=== PATIENT | female | born 1960 | race Caucasian/White ===

== ENCOUNTER → 2017-10-12 | Outpatient (CLI) | payer SELFPAY ==
[2017-10-12 07:20] LABS: HCT 41.6 % (34.0-46.0); HGB 13.8 gm/dL (11.4-16.0); MCH 28.4 pg (25.0-35.0); MCV 85.8 fL (80.0-100.0); Mean Platelet Volume 7.5; Platelet Count 315 k/uL (150-450); RBC 4.85 m/uL (3.80-5.40); RDW 14.1 % (11.5-15.5); WBC 8.1 k/uL (3.8-10.6)
[2017-10-12 09:19] LABS: C Reactive Protein 11.4 mg/L (<10.0)
[2017-10-12 11:20] LABS: Rheumatoid Factor 6 IU/mL (0-15); Streptolysin O Ab(ASO) 39 IU/mL (0-200)
[2017-10-12 13:55] LABS: Erythrocyte Sedimentation Rate 36 mm/hr (0-20)
[2017-10-13 10:41] LABS: HLA B27 NEGATIVE
== END | disposition home or self-care (01) ==
LOC: LABWHC1 06:37
PROVIDERS: ATTEND Orthopaedic Surgery
DX: M19.072 Primary osteoarthritis, left ankle and foot (principal); M21.42 Flat foot [pes planus] (acquired), left foot; M06.9 Rheumatoid arthritis, unspecified
CPT/HCPCS: 36415; 84443; 85027; 85652; 86038; 86060; 86140; 86431; 86618; 86812

== ENCOUNTER → 2018-10-07 | Outpatient (CLI) | payer SELFPAY ==
--- NOTE | 2018-10-07 11:57 | XR ---
EXAMINATION TYPE: XR Hip Complete LT DATE OF EXAM: 10/07/2018 CLINICAL HISTORY: pain TECHNIQUE: AP and frogleg views of the left hip are obtained. COMPARISON: None. FINDINGS: There is no acute fracture/dislocation evident. The joint space appears within normal li mits. The overlying soft tissue appears unremarkable. IMPRESSION: 1. There is no acute fracture or dislocation. ICD 10 NO FRACTURE, INITIAL EVALUATION
== END ==
LOC: RADXRMAIN 11:14
PROVIDERS: ATTEND Midwife
DX: M25.552 Pain in left hip (principal)
CPT/HCPCS: 73502

== ENCOUNTER → 2019-01-14 | Outpatient (CLI) | payer SELFPAY ==
--- NOTE | 2019-01-14 16:26 | US ---
EXAMINATION TYPE: US abdomen complete DATE OF EXAM: 01/14/2019 COMPARISON: CT 2010 CLINICAL HISTORY: LLQ Abd Pain R10.32. Left lower quadrant abdominal pain x 2 weeks. Hx kidney stones . EXAM MEASUREMENTS: Liver Length: 16.1 cm Gallbladder Wall: 0.26 cm CBD: 0.48 cm Spleen: 10.1 cm Right Kidney: 11.5 x 6.1 x 6.4 cm Left Kidney: 10.9 x 6.1 x 6.7 cm Limited due to body habitus and gas Pancreas: appears wnl Liver: appears wnl Gallbladder: Echoes seen within the GB. Artifact vs. minimal sludge. Evidence for sonographic Ritter's sign: No CBD: wnl Spleen: wnl Right Kidney: Prominent renal pelvis. Minimal hydronephrosis? Left Kidney: Within normal limits Upper IVC: wnl Abd Aorta: wnl IMPRESSION: 1. There may be some minimal right hydronephrosis. 2. Small amount of Cholelithiasis and/or sludge.
== END | disposition home or self-care (01) ==
LOC: RADUSWWP 10:16
PROVIDERS: ATTEND Midwife
DX: R10.32 Left lower quadrant pain (principal)
CPT/HCPCS: 76700

== ENCOUNTER 2019-02-22 18:12 | Emergency (ER) | payer OTHER ==
[2019-02-22 18:18] VITALS: TEMP 98.1
[2019-02-22] MEDS ORDERED: SODIUM CHLORIDE 0.9% 1,000 ML IV STA (18:19)
[2019-02-22] MEDS ORDERED: ONDANSETRON 4 MG/2 ML VIAL IVP STA (18:19)
[2019-02-22] MEDS ORDERED: MORPHINE SULFATE 2 MG/ML SYRINGE IVP STA (18:19)
[2019-02-22 18:38] LABS: Basophils # (A) 0.1 k/uL (0-0.2); Basophils % (A) 1 %; Eosinophils # (A) 0.2 k/uL (0-0.7); Eosinophils % (A) 2 %; HCT 42.2 % (34.0-46.0); HGB 13.5 gm/dL (11.4-16.0); Lymphocytes % (A) 19 %; MCH 27.9 pg (25.0-35.0); MCV 87.4 fL (80.0-100.0); Mean Platelet Volume 7.7; Monocytes # (A) 0.5 k/uL (0-1.0); Monocytes % (A) 4 %; Neutrophils # (A) 7.5 k/uL (1.3-7.7); Neutrophils % (A) 72 %; Platelet Count 304 k/uL (150-450); RBC 4.83 m/uL (3.80-5.40); RDW 15.8 % (11.5-15.5); WBC 10.4 k/uL (3.8-10.6)
[2019-02-22] MEDS ORDERED: KETOROLAC 30 MG/ML 1 ML VIAL IVP STA (18:45)
[2019-02-22 18:47] LABS: ALT 23 U/L (9-52); AST 19 U/L (14-36); African American GFR (CKD) >90 (>60 ml/min/1.73 sqM); Albumin 3.8 g/dL (3.5-5.0); Alkaline Phosphatase 71 U/L (38-126); Amylase 55 U/L (30-110); Anion Gap 6 mmol/L; Blood Urea Nitrogen 14 mg/dL (7-17); Calcium 8.7 mg/dL (8.4-10.2); Carbon Dioxide 27 mmol/L (22-30); Chloride 109 mmol/L (98-107); Glucose 116 mg/dL (74-99); Lipase 117 U/L (23-300); Sodium 142 mmol/L (137-145); Total Bilirubin 0.3 mg/dL (0.2-1.3); Total Protein 6.8 g/dL (6.3-8.2)
--- NOTE | 2019-02-22 18:52 | ED ---
Abdominal Pain HPI - General Chief Complaint: Abdominal Pain Stated Complaint: LEFT FLANK PAIN Time Seen by Provider: 02/22/19 18:19 Source: patient Mode of arrival: wheelchair Limitations: no limitations - History of Present Illness Initial Comments: 58-year-old female presenting for left lower quadrant and left flank pain. Patient has history of kidney stones. Patient states this morning she felt nauseated and had left side pain. She states she ate something and vomited it out. She states it was food. She denies any hematemesis. Patient denies fever chills night sweats diarrhea she denies dysuria or urgency frequency or hematuria. Patient states the pain has been persistent coming and going in intensity. She denies any specific radiation of the pain she is denies any specific alleviating or aggravating factors. Patient denies taking medications prior to arrival to emergency department. Patient denies any known drug ALLERGIES. She denies any recent surgeries. Remaining review of systems negative, patient denies any recent shortness of breath, chest pain, numbness or tingling, constipation or diarrhea, headaches or visual changes, or any other complaints. Multiple normal BM today. - Related Data Home Medications Medication Instructions Recorded Confirmed Ergocalciferol [Vitamin D2 50,000 unit PO MO 04/16/15 04/16/15 (DRISDOL)] Ibuprofen [Motrin] 200 - 400 mg PO Q6HR PRN 04/16/15 04/16/15 Ibuprofen/Diphenhydramine HCl 1 tab PO HS PRN 04/16/15 04/16/15 [Advil Pm Liqui-Gels] buPROPion HCL [Wellbutrin SR] 150 mg PO BID 04/16/15 04/16/15 Previous Rx's Medication Instructions Recorded Cephalexin [Keflex] 500 mg PO Q8HR 7 Days #21 cap 02/22/19 Ketorolac [Toradol] 10 mg PO Q6HR PRN 5 Days #20 tab 02/22/19 Ondansetron Odt [Zofran Odt] 4 mg PO Q8HR PRN 5 Days #15 tab 02/22/19 Allergies Allergy/AdvReac Type Severity Reaction Status Date / Time No Known Allergies Allergy Verified 02/22/19 18:17 Review of Systems ROS Statement: Those systems with pertinent positive or pertinent negative responses have been documented in the HPI. ROS Other: All systems not noted in ROS Statement are negative. Past Medical History Past Medical History: Diabetes Mellitus Additional Past Medical History / Comment(s): DIET CONTROLLED, DIABETIC History of Any Multi-Drug Resistant Organisms: None Reported Past Surgical History: Orthopedic Surgery Additional Past Surgical History / Comment(s): EX. LAPAROSCOPY. Past Anesthesia/Blood Transfusion Reactions: No Reported Reaction Past Psychological History: Depression Smoking Status: Never smoker Past Alcohol Use History: Rare Past Drug Use History: None Reported General Exam - General Exam Comments Initial Comments: General: The patient is awake and alert, in no distress, and does not appear acutely ill. Eye: +3 mm pupils are equal, round and reactive to light, extra-ocular movements are intact. No nystagmus. There is normal conjunctiva bilaterally. No signs of icterus. Ears, nose, mouth and throat: There are moist mucous membranes and no oral lesions. Neck: The neck is supple, there is no tenderness or JVD. Cardiovascular: There is a regular rate and rhythm. No murmur, rub or gallop is appreciated. Respiratory: Lungs are clear to auscultation, respirations are non-labored, breath sounds are equal. No wheezes, stridor, rales, or rhonchi. Gastrointestinal: Soft, non-distended, tender abdomen to palpation in the LLQ without masses or organomegaly noted. There is no rebound or guarding present. No CVA tenderness. Bowel sounds are unremarkable. Musculoskeletal: Normal ROM, no tenderness. Strength 5/5. Sensation intact. Radial and DP pulses equal bilaterally 2+. Neurological: A&O x 3. CN II-XII intact, There are no obvious motor or sensory deficits. Coordination appears grossly intact. Speech is normal. Skin: Skin is warm and dry and no rashes or lesions are noted. Psychiatric: Cooperative, appropriate mood & affect, normal judgment. Limitations: no limitations Course Vital Signs 02/22/19 02/22/19 02/22/19 18:15 20:40 21:35 Temperature 98.1 F Pulse Rate 73 74 71 Respiratory 18 16 18 Rate Blood Pressure 152/80 129/67 131/91 O2 Sat by Pulse 99 100 97 Oximetry - Reevaluation(s) Reevaluation #1: Upon reevaluation patient is resting comfortably in the bed. She states that the medications have alleviated the pain. Awaiting urinalysis results. 02/22/19 20:27 Medical Decision Making - Medical Decision Making 58-year-old female history of kidney stones presents with left flank pain. Relief with Toradol. Urinalysis revealed red blood cells. Moderate leukocyte e sterase, 7 WBC. She has no leukocytosis. Afebrile. In no discomfort after Toradol. CT revealed a large left-sided stone 7 mm. They appear to be out of proportion. Cleo-nephrotic edema. However there is no overt signs of infection. There is concern for possible urine leakage. I discussed the findings with Dr. Montoya attenidng provider who contacted Dr. Cordoba taxation agent Urologist. He recommended discharge with outpatient f/u. I discussed the trace studies as well as CT imaging study findings with patient. She is agreeable and states she feels comfortable with discharge home with outpatient follow-up. Patient is prescribed, Toradol as well as Zofran for symptomatic treatment. As well as a short course of Keflex. Patient discharged appearing well. Return parameters were discussed at length with patient prior to discharge. - Lab Data Result diagrams: 02/22/19 18:31 02/22/19 18:31 Lab Results 02/22/19 02/22/19 02/22/19 Range/Units 18:31 18:31 20:00 WBC 10.4 (3.8-10.6) k/uL RBC 4.83 (3.80-5.40) m/uL Hgb 13.5 (11.4-16.0) gm/dL Hct 42.2 (34.0-46.0) % MCV 87.4 (80.0-100.0) fL MCH 27.9 (25.0-35.0) pg MCHC 32.0 (31.0-37.0) g/dL RDW 15.8 H (11.5-15.5) % Plt Count 304 (150-450) k/uL Neutrophils % 72 % Lymphocytes % 19 % Monocytes % 4 % Eosinophils % 2 % Basophils % 1 % Neutrophils # 7.5 (1.3-7.7) k/uL Lymphocytes # 2.0 (1.0-4.8) k/uL Monocytes # 0.5 (0-1.0) k/uL Eosinophils # 0.2 (0-0.7) k/uL Basophils # 0.1 (0-0.2) k/uL Sodium 142 (137-145) mmol/L Potassium 4.0 (3.5-5.1) mmol/L Chloride 109 H (98-107) mmol/L Carbon Dioxide 27 (22-30) mmol/L Anion Gap 6 mmol/L BUN 14 (7-17) mg/dL Creatinine 0.69 (0.52-1.04) mg/dL Est GFR (CKD-EPI)AfAm >90 (>60 ml/min/1.73 sqM) Est GFR (CKD-EPI)NonAf >90 (>60 ml/min/1.73 sqM) Glucose 116 H (74-99) mg/dL Calcium 8.7 (8.4-10.2) mg/dL Total Bilirubin 0.3 (0.2-1.3) mg/dL AST 19 (14-36) U/L ALT 23 (9-52) U/L Alkaline Phosphatase 71 (38-126) U/L Total Protein 6.8 (6.3-8.2) g/dL Albumin 3.8 (3.5-5.0) g/dL Amylase 55 (30-110) U/L Lipase 117 (23-300) U/L Urine Color Light Yellow Urine Appearance Clear (Clear) Urine pH 6.5 (5.0-8.0) Ur Specific [place] 1.024 (1.001-1.035) Urine Protein Negative (Negative) Urine Glucose (UA) Negative (Negative) Urine Ketones Negative (Negative) Urine Blood Moderate H (Negative) Urine Nitrite Negative (Negative) Urine Bilirubin Negative (Negative) Urine Urobilinogen <2.0 (<2.0) mg/dL Ur Leukocyte Esterase Moderate H (Negative) Urine RBC 42 H (0-5) /hpf Urine WBC 7 H (0-5) /hpf Ur Squamous Epith Cells 1 (0-4) /hpf Urine Mucus Rare H (None) /hpf Disposition Clinical Impression: Kidney stone on left side, Flank pain Disposition: HOME SELF-CARE Condition: Good Instructions (If sedation given, give patient instructions): Kidney Stones (ED) Additional Instructions: Please use medication as discussed. Please follow-up with urology in the next 2-3 days. Please return to emergency room if the symptoms increase or worsen or for any other concerns, fever, increasing pain. Prescriptions: Cephalexin [Keflex] 500 mg PO Q8HR 7 Days #21 cap Ketorolac [Toradol] 10 mg PO Q6HR PRN 5 Days #20 tab PRN Reason: Severe Pain Ondansetron Odt [Zofran Odt] 4 mg PO Q8HR PRN 5 Days #15 tab PRN Reason: Nausea Is patient prescribed a controlled substance at d/c from ED?: No Referrals: Lincoln Martínez MD [Primary Care Provider] - 1-2 days Omega Cordoba MD [STAFF PHYSICIAN] - 1-2 days Time of Disposition: 20:54
--- NOTE | 2019-02-22 19:57 | CT ---
EXAMINATION TYPE: CT abdomen pelvis w con DATE OF EXAM: 02/22/2019 COMPARISON: NONE HISTORY: 58-year-old female with left sided abdominal pain. TECHNIQUE: Contiguous axial scanning of the abdomen and pelvis following administration of 100 ml Iso eric 300 IV contrast. Delayed images through the kidneys and coronal/sagittal reconstructions perform ed. CT DLP: 1533.7 mGycm Automated exposure control for dose reduction was used. FINDINGS: Heart normal size without pericardial effusion. Lung bases clear without pleural effusion. Mild depen dent atelectasis. Small hiatal hernia. No focal liver lesion or biliary ductal dilatation. Portal venous system is patent. Gallbladder, adrenal glands, and pancreas appear within normal limits. Tiny diverticulum of the secon d portion of the duodenum projecting into the pancreatic head region. Small focal calcification along the upper pole of the spleen, possible calcified granuloma. Punctate 2 mm nonobstructive right renal calculus. Centrally, there is a 2.2 cm ovoid parapelvic cyst . Additional parapelvic cyst left kidney with mild pelvocaliectasis in the superior millimeter calculus in the upper ureter. Prominent perinephric edema is asymmetrically delayed excretion of contrast fro m the left kidney. No dilated small bowel, free fluid, or free air. Normal appendix. Scattered mild stool. No pericolonic inflammatory change. Mild proximal to mid sigmo id diverticulosis. Bladder urine distended. Uterus and ovaries are visualized. Pelvic phleboliths. No abnormal fluid col lection the pelvis or pelvic lymphadenopathy. Bones: Mild facet arthropathy lower lumbar spine. IMPRESSION: 1. A 7 MM UPPER LEFT URETERAL CALCULUS WITH MILD OBSTRUCTIVE UROPATHY. 2. THE DEGREE OF PERINEPHRIC EDEMA IS OUT OF PROPORTION TO THE DEGREE OF HYDRONEPHROSIS. FINDINGS COU LD REPRESENT SUPERIMPOSED INFECTION OR SMALL AMOUNT OF PYELOSINUS BACKFLOW/URINE LEAKAGE. 3. SMALL HIATAL HERNIA AND MILD PROXIMAL TO MID SIGMOID DIVERTICULOSIS. 4. PUNCTATE 2 MM NONOBSTRUCTIVE RIGHT RENAL CALCULUS.
[2019-02-22 20:36] LABS: Appearance,Urine Clear (Clear); Bilirubin,Urine Negative (Negative); Blood,Urine Moderate (Negative); Color,Urine Light Yellow; Glucose,Urine (UA) Negative (Negative); Ketones,Urine Negative (Negative); Leukocyte Esterase,Urine Moderate (Negative); Mucus,Urine Rare /hpf; Nitrite,Urine Negative (Negative); PH, Urine 6.5 (5.0-8.0); Protein,Urine Negative (Negative); RBC,Urine 42 /hpf (0-5); Specific Gravity,Urine 1.024 (1.001-1.035); Squamous Epithelial Cell,Urine 1 /hpf (0-4); Urobilinogen,Urine <2.0 mg/dL (<2.0); WBC,Urine 7 /hpf (0-5)
[2019-02-22] MEDS ORDERED: cefTRIAXone IN SWFI 1,000 MG/10 ML SYRINGE IVP STA (20:36)
[2019-02-22 21:37] VITALS: BP 131/91; PULSE 71; RESP 18
== END 2019-02-22 21:35 | disposition home or self-care (01) ==
LOC: EC 18:12
DX: N20.0 Calculus of kidney (principal); F32.9 Major depressive disorder, single episode, unspecified; Z79.899 Other long term (current) drug therapy
CPT/HCPCS: 36415; 80053; 82150; 83690; 85025; 81001; 74177; 99284; 96374; 96375 ×3; 96361 ×2; J2405; J0696; J1885; J2270; Q9967

== ENCOUNTER 2019-02-28 07:06 | Emergency (ER) | payer OTHER ==
[2019-02-28] MEDS ORDERED: HYDROmorphone 1 MG/ML 1 ML SYRINGE IVP STA (07:30)
[2019-02-28] MEDS ORDERED: SODIUM CHLORIDE 0.9% 1,000 ML IV STA ×2 (07:30)
[2019-02-28] MEDS ORDERED: ONDANSETRON ODT 8 MG TAB.RAPDIS PO STA (07:30)
[2019-02-28] MEDS ORDERED: KETOROLAC 30 MG/ML 1 ML VIAL IVP STA (07:30)
--- NOTE | 2019-02-28 07:43 | ED ---
Abdominal Pain HPI - General Chief Complaint: Abdominal Pain Stated Complaint: Kidney stones Time Seen by Provider: 02/28/19 07:16 Source: patient, RN notes reviewed, old records reviewed Mode of arrival: ambulatory - History of Present Illness Initial Comments: Patient is a 58 rolled female who presents emergency department today for evaluation for continued left flank pain. Patient was diagnosed with a 7 mm kidney stone on February 22. She states that she followed up yesterday with Dr. Da Silva. Patient reportedly was given options for possible ureteral stent or lithotripsy procedures in the next 10 days, but urologist wanted to wait to see she may pass it on her own by that time. Patient reports that she was started on antibiotics, as well as continuing to have chills. She states that she's been vomiting, unable to tolerate her medications orally. - Related Data Home Medications Medication Instructions Recorded Confirmed Ergocalciferol [Vitamin D2 50,000 unit PO MO 04/16/15 04/16/15 (DRISDOL)] Ibuprofen [Motrin] 200 - 400 mg PO Q6HR PRN 04/16/15 04/16/15 Ibuprofen/Diphenhydramine HCl 1 tab PO HS PRN 04/16/15 04/16/15 [Advil Pm Liqui-Gels] buPROPion HCL [Wellbutrin SR] 150 mg PO BID 04/16/15 04/16/15 Previous Rx's Medication Instructions Recorded Cephalexin [Keflex] 500 mg PO Q8HR 7 Days #21 cap 02/22/19 Ketorolac [Toradol] 10 mg PO Q6HR PRN 5 Days #20 tab 02/22/19 Ondansetron Odt [Zofran Odt] 4 mg PO Q8HR PRN 5 Days #15 tab 02/22/19 HYDROcodone/APAP 5-325MG [[place] 1 tab PO Q6HR PRN #12 tab 02/28/19 5-325] Ketorolac [Toradol] 10 mg PO Q6HR #12 tab 02/28/19 Ondansetron Odt [Zofran Odt] 4 mg PO Q8HR PRN #15 tab 02/28/19 Tamsulosin [Flomax] 0.4 mg PO DAILY #7 cap 02/28/19 Allergies Allergy/AdvReac Type Severity Reaction Status Date / Time No Known Allergies Allergy Verified 02/28/19 07:12 Review of Systems ROS Statement: Those systems with pertinent positive or pertinent negative responses have been documented in the HPI. ROS Other: All systems not noted in ROS Statement are negative. Past Medical History Past Medical History: Diabetes Mellitus Additional Past Medical History / Comment(s): DIET CONTROLLED, DIABETIC History of Any Multi-Drug Resistant Organisms: None Reported Past Surgical History: Orthopedic Surgery Additional Past Surgical History / Comment(s): EX. LAPAROSCOPY. Past Anesthesia/Blood Transfusion Reactions: No Reported Reaction Past Psychological History: Depression Smoking Status: Never smoker Past Alcohol Use History: Rare Past Drug Use History: None Reported General Exam - General Exam Comments Initial Comments: 58-year-old female. Alert and oriented. Moderate distress. General appearance: alert, in no apparent distress Head exam: Present: atraumatic, normocephalic, normal inspection Eye exam: Present: normal appearance ENT exam: Present: normal exam, mucous membranes moist Neck exam: Present: normal inspection. Absent: tenderness, meningismus, lymphadenopathy Respiratory exam: Present: normal lung sounds bilaterally. Absent: respiratory distress, wheezes, rales, rhonchi, stridor Cardiovascular Exam: Present: regular rate GI/Abdominal exam: Present: soft, tenderness (Left CVA tenderness), normal bowel sounds. Absent: distended, guarding, rebound, rigid Extremities exam: Present: normal inspection, full ROM, normal capillary refill. Absent: tenderness, pedal edema, joint swelling, calf tenderness Back exam: Present: normal inspection Neurological exam: Present: alert, oriented X3, CN II-XII intact Psychiatric exam: Present: normal affect, normal mood Skin exam: Present: warm, dry, intact, normal color. Absent: rash Course Vital Signs 02/28/19 07:10 Temperature 97.9 F Pulse Rate 72 Respiratory 22 Rate Blood Pressure 151/80 O2 Sat by Pulse 99 Oximetry Medical Decision Making - Medical Decision Making 58-year-old female presents with after seeing Dr. Da Silva, complains of left flank pain and kidney stone. Patient was sinus with a 7 mm proximal ureteral stone on February 22. This time patient's labwork was reviewed she started on IV fluids and given pain medication. On reevaluation she is resting comfortably in bed. Patient has lab work shows elevated creatinine 1.2. This is increased from February 22 but no significant change in the GFR at this point. Patient was advised of these results. KUB this time shows objective bowel gas pattern. Unable to identify stone. She has some left CVA tenderness. No fever at this time. Patient reports that yesterday that she was started on a new medication to add to the Keflex to Zofran and Toradol prescription. Patient states his description of the medications likely Flomax. His states that this time he can also start Patient on [employer] pain medications which is [place]. Patient is advised that she should receive follow-up with Dr. Fine will likely need a ureteral stent. Discussed monitoring for any significant fever. Patient agrees to treatment plan will comply. Return parameters were discussed. - Lab Data Result diagrams: 02/28/19 08:05 02/28/19 08:05 Lab Results 02/28/19 02/28/19 02/28/19 Range/Units 08:05 08:05 08:05 WBC 8.9 (3.8-10.6) k/uL RBC 4.51 (3.80-5.40) m/uL Hgb 12.8 (11.4-16.0) gm/dL Hct 39.0 (34.0-46.0) % MCV 86.5 (80.0-100.0) fL MCH 28.5 (25.0-35.0) pg MCHC 32.9 (31.0-37.0) g/dL RDW 14.8 (11.5-15.5) % Plt Count 233 (150-450) k/uL Neutrophils % 74 % Lymphocytes % 15 % Monocytes % 6 % Eosinophils % 3 % Basophils % 1 % Neutrophils # 6.6 (1.3-7.7) k/uL Lymphocytes # 1.3 (1.0-4.8) k/uL Monocytes # 0.6 (0-1.0) k/uL Eosinophils # 0.3 (0-0.7) k/uL Basophils # 0.1 (0-0.2) k/uL PT (9.0-12.0) sec INR (<1.2) APTT (22.0-30.0) sec Sodium 139 (137-145) mmol/L Potassium 4.3 (3.5-5.1) mmol/L Chloride 107 (98-107) mmol/L Carbon Dioxide 24 (22-30) mmol/L Anion Gap 8 mmol/L BUN 23 H (7-17) mg/dL Creatinine 1.22 H (0.52-1.04) mg/dL Est GFR (CKD-EPI)AfAm 57 (>60 ml/min/1.73 sqM) Est GFR (CKD-EPI)NonAf 50 (>60 ml/min/1.73 sqM) Glucose 98 (74-99) mg/dL Plasma Lactic Acid Oj (0.7-2.0) mmol/L Calcium 9.0 (8.4-10.2) mg/dL Total Bilirubin 0.5 (0.2-1.3) mg/dL AST 28 (14-36) U/L ALT 25 (9-52) U/L Alkaline Phosphatase 81 (38-126) U/L Total Protein 7.0 (6.3-8.2) g/dL Albumin 4.0 (3.5-5.0) g/dL Amylase 57 (30-110) U/L Lipase 98 (23-300) U/L Urine Color Yellow Urine Appearance Clear (Clear) Urine pH 5.5 (5.0-8.0) Ur Specific [place] 1.024 (1.001-1.035) Urine Protein Negative (Negative) Urine Glucose (UA) Negative (Negative) Urine Ketones Negative (Negative) Urine Blood Small H (Negative) Urine Nitrite Negative (Negative) Urine Bilirubin Negative (Negative) Urine Urobilinogen <2.0 (<2.0) mg/dL Ur Leukocyte Esterase Negative (Negative) Urine RBC 12 H (0-5) /hpf Urine WBC 2 (0-5) /hpf Ur Squamous Epith Cells <1 (0-4) /hpf Urine Mucus Rare H (None) /hpf 02/28/19 02/28/19 Range/Units 08:10 08:10 WBC (3.8-10.6) k/uL RBC (3.80-5.40) m/uL Hgb (11.4-16.0) gm/dL Hct (34.0-46.0) % MCV (80.0-100.0) fL MCH (25.0-35.0) pg MCHC (31.0-37.0) g/dL RDW (11.5-15.5) % Plt Count (150-450) k/uL Neutrophils % % Lymphocytes % % Monocytes % % Eosinophils % % Basophils % % Neutrophils # (1.3-7.7) k/uL Lymphocytes # (1.0-4.8) k/uL Monocytes # (0-1.0) k/uL Eosinophils # (0-0.7) k/uL Basophils # (0-0.2) k/uL PT 10.6 (9.0-12.0) sec INR 1.0 (<1.2) APTT 22.4 (22.0-30.0) sec Sodium (137-145) mmol/L Potassium (3.5-5.1) mmol/L Chloride (98-107) mmol/L Carbon Dioxide (22-30) mmol/L Anion Gap mmol/L BUN (7-17) mg/dL Creatinine (0.52-1.04) mg/dL Est GFR (CKD-EPI)AfAm (>60 ml/min/1.73 sqM) Est GFR (CKD-EPI)NonAf (>60 ml/min/1.73 sqM) Glucose (74-99) mg/dL Plasma Lactic Acid Oj 1.3 (0.7-2.0) mmol/L Calcium (8.4-10.2) mg/dL Total Bilirubin (0.2-1.3) mg/dL AST (14-36) U/L ALT (9-52) U/L Alkaline Phosphatase (38-126) U/L Total Protein (6.3-8.2) g/dL Albumin (3.5-5.0) g/dL Amylase (30-110) U/L Lipase (23-300) U/L Urine Color Urine Appearance (Clear) Urine pH (5.0-8.0) Ur Specific [place] (1.001-1.035) Urine Protein (Negative) Urine Glucose (UA) (Negative) Urine Ketones (Negative) Urine Blood (Negative) Urine Nitrite (Negative) Urine Bilirubin (Negative) Urine Urobilinogen (<2.0) mg/dL Ur Leukocyte Esterase (Negative) Urine RBC (0-5) /hpf Urine WBC (0-5) /hpf Ur Squamous Epith Cells (0-4) /hpf Urine Mucus (None) /hpf - Radiology Data Radiology results: report reviewed KUB shows nonobstructive bowel gas pattern. No suspicious colliculi overlying the renal shadow course of the ureters. Revealed CT abdomen and pelvis from February 22 shows 7 mm up [id number] calculus with mild obstructive uropathy. The degree. Effort edema is out of proportion to the degree of hydronephrosis. Findings could be superimposed infection or small Monopril a sinus backflow urine leakage. Disposition Clinical Impression: Kidney stone on left side, Dehydration Disposition: HOME SELF-CARE Condition: Good Instructions (If sedation given, give patient instructions): Ureteral Stones (ED) Additional Instructions: Patient is to have close follow up with Dr. Da Silva. The medication as prescribed. Her prescriptions are sent to [facility]. Patient should rest, remain hydrated. Return to emergency department if any alarming signs or symptoms occur. Prescriptions: Tamsulosin [Flomax] 0.4 mg PO DAILY #7 cap HYDROcodone/APAP 5-325MG [[place] 5-325] 1 tab PO Q6HR PRN #12 tab PRN Reason: Pain Ketorolac [Toradol] 10 mg PO Q6HR #12 tab Ondansetron Odt [Zofran Odt] 4 mg PO Q8HR PRN #15 tab PRN Reason: Nausea Is patient prescribed a controlled substance at d/c from ED?: Yes When asked, does pt state using other controlled substances?: No If prescribed controlled substance>3 days was MAPS reviewed?: Prescribed <3 Days If opioid is for acute pain is fill amount 7 days or less?: Yes If Rx opioid, was Start Talking consent form obtained?: Yes Referrals: Lincoln Martínez MD [Primary Care Provider] - 1-2 days Ahmet Kenney MD [STAFF PHYSICIAN] - 1-2 days Tarik Da Silva MD [Family Provider] - 1-2 days Time of Disposition: 09:30
[2019-02-28 08:28] LABS: Appearance,Urine Clear (Clear); Bilirubin,Urine Negative (Negative); Blood,Urine Small (Negative); Color,Urine Yellow; Glucose,Urine (UA) Negative (Negative); Ketones,Urine Negative (Negative); Leukocyte Esterase,Urine Negative (Negative); Mucus,Urine Rare /hpf; Nitrite,Urine Negative (Negative); PH, Urine 5.5 (5.0-8.0); Protein,Urine Negative (Negative); RBC,Urine 12 /hpf (0-5); Specific Gravity,Urine 1.024 (1.001-1.035); Squamous Epithelial Cell,Urine <1 /hpf (0-4); Urobilinogen,Urine <2.0 mg/dL (<2.0); WBC,Urine 2 /hpf (0-5)
[2019-02-28 08:33] LABS: Basophils # (A) 0.1 k/uL (0-0.2); Basophils % (A) 1 %; Eosinophils # (A) 0.3 k/uL (0-0.7); Eosinophils % (A) 3 %; HGB 12.8 gm/dL (11.4-16.0); Lymphocytes # (A) 1.3 k/uL (1.0-4.8); Lymphocytes % (A) 15 %; MCH 28.5 pg (25.0-35.0); MCHC 32.9 g/dL (31.0-37.0); MCV 86.5 fL (80.0-100.0); Mean Platelet Volume 7.3; Monocytes # (A) 0.6 k/uL (0-1.0); Monocytes % (A) 6 %; Neutrophils # (A) 6.6 k/uL (1.3-7.7); Neutrophils % (A) 74 %; Platelet Count 233 k/uL (150-450); RBC 4.51 m/uL (3.80-5.40); RDW 14.8 % (11.5-15.5); WBC 8.9 k/uL (3.8-10.6)
[2019-02-28 08:41] LABS: Partial Thromboplastin Time 22.4 sec (22.0-30.0); Prothrombin Time 10.6 sec (9.0-12.0)
[2019-02-28 08:46] LABS: Potassium 4.3 mmol/L (3.5-5.1); Total Bilirubin 0.5 mg/dL (0.2-1.3)
--- NOTE | 2019-02-28 09:03 | XR ---
EXAMINATION TYPE: XR KUB DATE OF EXAM: 02/28/2019 8:57 AM CLINICAL HISTORY: Left-sided flank pain with history of nephrolithiasis TECHNIQUE: Single upright image of the abdomen is obtained. COMPARISON: 08/28/2011. FINDINGS: Scattered gas is seen in nondilated small bowel loops. Gas and fecal material is seen in no ndilated colon. No pneumoperitoneum is seen. The lung bases are clear and the osseous structures are intact. Multiple phleboliths are seen within the pelvis, similar to 2010. Calculi in the left upper q uadrant overlie the region of the spleen and may represent granulomas. IMPRESSION: 1. Nonobstructive bowel gas pattern. 2. No suspicious calculi overlying the renal shadows or courses of the ureters.
[2019-02-28] MEDS ORDERED: SODIUM CHLORIDE 0.9% 1,000 ML IV ONE (09:23)
[2019-02-28 09:29] VITALS: RESP 16
[2019-02-28 10:33] VITALS: BP 112/66; PULSE 68; TEMP 97.6
== END 2019-02-28 10:33 | disposition home or self-care (01) ==
LOC: EC 07:06
DX: N20.0 Calculus of kidney (principal); E86.0 Dehydration; R79.89 Other specified abnormal findings of blood chemistry; F32.9 Major depressive disorder, single episode, unspecified; Z79.899 Other long term (current) drug therapy
CPT/HCPCS: 36415; 80053; 82150; 83605; 83690; 85025; 85610; 85730; 81001; 87040; 87086; 74018; 99284; 96374; 96375; 96361 ×2; J1885; J1170

== ENCOUNTER → 2021-10-18 | Outpatient (CLI) | payer OTHER ==
--- NOTE | 2021-10-18 18:30 | CT ---
EXAMINATION TYPE: CT abdomen pelvis wo con CT DLP: 1235 mGycm, Automated exposure control for dose reduction was used. DATE OF EXAM: 10/18/2021 6:06 PM COMPARISON: CT abdomen pelvis most recent from 02/22/2019 . CLINICAL INDICATION:Female, 61 years old with history of R10.9 abdominal pain; Abdominal pain, hx elroy al stones. TECHNIQUE: Standard CT of the abdomen and pelvis without and following the administration of 100 cc of Isovue 300 IV contrast material. Coronal and sagittal reformats were performed. FINDINGS: LOWER CHEST: Unremarkable ABDOMEN LIVER: Unremarkable GALLBLADDER AND BILE DUCTS: Unremarkable. PANCREAS: Unremarkable. SPLEEN: There are enlarged with calcified granuloma present. ADRENAL GLANDS: Unremarkable. KIDNEYS AND URETERS: No evidence of hydronephrosis. There is an nonobstructing right renal calculus m easuring similarly at 3 mm. Left kidney demonstrates mild pelviectasis sequela of prior hydronephrosi s seen in 2019.. PELVIS BLADDER: Incompletely distended but grossly unremarkable. REPRODUCTIVE: Unremarkable. ABDOMEN & PELVIS STOMACH AND BOWEL: Stomach and duodenum are unremarkable. Scattered diverticula are noted throughout the colon. No evidence of bowel obstruction. PERITONEUM: No evidence of pneumoperitoneum or free fluid. VASCULATURE: No evidence of aortic aneurysm. MUSCULOSKELETAL: No acute osseous abnormalities LYMPH NODES: No gross evidence for lymphadenopathy. SOFT TISSUE/ABDOMINAL WALL: Fat filled umbilical hernia measuring 0.5 cm at the neck. IMPRESSION: 1. No evidence for acute abdominal process, hydronephrosis or obstructive uropathy. 2. Right nonobstructing renal calculus.
== END | disposition home or self-care (01) ==
LOC: RADCTMAIN 17:01
PROVIDERS: ATTEND Family Medicine
DX: N20.0 Calculus of kidney (principal)
CPT/HCPCS: 74176